=== PATIENT | male | born 1970 | race Caucasian/White ===

== ENCOUNTER 2016-06-12 10:22 | Day surgery (SDC) | payer OTHER ==
[2016-06-06 09:19] LABS: HEMATOCRIT 47.7 % (37.9-51.0); HEMOGLOBIN 16.1 g/dL (13.5-17.0); HGB HCT DIFFERENCE 0.6; MEAN CORPUSCULAR HEMOGLOBIN 30.3 pg (27.0-33.4); MEAN CORPUSCULAR HGB CONC 33.7 g/dL (32.0-36.0); MEAN CORPUSCULAR VOLUME 90 fl (80-97); RED BLOOD COUNT 5.31 10^6/uL (4.35-5.55); RED CELL DISTRIBUTION WIDTH 13.1 % (11.5-14.0); WHITE BLOOD COUNT 6.8 10^3/uL (4.0-10.5)
[2016-06-06 09:23] LABS: APPEARANCE,URINE CLEAR; BILIRUBIN,URINE NEGATIVE (NEGATIVE); GLUCOSE, URINE NEGATIVE (NEGATIVE); KETONES,URINE TRACE mg/dL (NEGATIVE); LEUKOCYTE ESTERASE,URINE NEGATIVE (NEGATIVE); NITRITE,URINE NEGATIVE (NEGATIVE); PROTEIN,URINE NEGATIVE (NEGATIVE); URINE SPECIFIC GRAVITY 1.021; UROBILINOGEN,URINE NEGATIVE mg/dL (<2.0)
[2016-06-06 10:04] LABS: ANION GAP 12 (5-19); BLOOD UREA NITROGEN 18 mg/dL (7-20); CALCIUM 10.1 mg/dL (8.4-10.2); CARBON DIOXIDE 24 mmol/L (22-30); CHLORIDE 109 mmol/L (98-107); CREATININE RESULT 1.24 mg/dL (0.52-1.25); GLUCOSE 84 mg/dL (75-110); POTASSIUM 4.7 mmol/L (3.6-5.0); SODIUM 144.8 mmol/L (137-145)
[~2016-06-12 10:22] MED LIST: CEFAZOLIN 2 GM/D5W RTU 2 GM/50 ML RTUPB IV PRN; DEXAMETHASONE SOD PHOSPHATE INJ 4 MG/1 ML VIAL ONE; LACTATED RINGERS 1000 ML IV PRN; LIDOCAINE 2% INJ-PF (20 MG/ML) 10 ML AMPUL ONE; METOCLOPRAMIDE HCL INJ/PF 10 MG/2 ML SDV ONE; ONDANSETRON HCL INJ/PF 4 MG/2 ML SDV ONE; SUCCINYLCHOLINE CHLORIDE INJ 200 MG/10 ML VIAL ONE
[2016-06-12] MEDS ORDERED: MIDAZOLAM 2 MG/2 ML INJ ONE (12:50)
[2016-06-12] MEDS ORDERED: FENTANYL CITRATE INJ/PF 250 MCG/5 ML AMPULE ONE (12:50)
[2016-06-12] MEDS ORDERED: EPHEDRINE SULFATE INJ 50 MG/1 ML AMPULE ONE (12:50)
[2016-06-12] MEDS ORDERED: DEXMEDETOMIDINE INJ 80 MCG/20 ML VIAL IV ONE (12:51)
[2016-06-12] MEDS ORDERED: PROPOFOL INJ 200 MG/20 ML VIAL IV ONE (12:51)
[2016-06-12] MEDS ORDERED: EPINEPHRINE INJ 30 MG/30 ML VIAL ONE (12:52)
[2016-06-12] MEDS ORDERED: BUPIVACAINE HCL 0.25 % INJ/PF (2.5 MG/1 ML) 30 ML VIAL ONE (12:53)
[2016-06-12] MEDS ORDERED: MEPERIDINE HCL/PF INJ 25 MG/1 ML DISP.SYRIN IV PRN (13:35)
[2016-06-12] MEDS ORDERED: FENTANYL CITRATE INJ/PF 100 MCG/2 ML AMPUL IV PRN ×3 (13:35)
[2016-06-12] MEDS ORDERED: OXYCODONE-ACETAMINOPHEN 5-325 MG TABLET PO PRN ×4 (13:35→14:54)
[2016-06-12] MEDS ORDERED: PROMETHAZINE HCL INJ 25 MG/1 ML VIAL IV PRN ×2 (13:35)
[2016-06-12] MEDS ORDERED: MORPHINE SULFATE 10 MG/ML INJ IV PRN (13:35)
[2016-06-12] MEDS ORDERED: DIPHENHYDRAMINE HCL 50 MG/ML VIAL IV PRN (13:35)
[2016-06-12] MEDS ORDERED: ONDANSETRON HCL INJ/PF 4 MG/2 ML SDV IV PRN (13:35)
[2016-06-12] MEDS ORDERED: MEPERIDINE HCL/PF INJ 25 MG/1 ML DISP.SYRIN ONE (14:48)
--- NOTE | 2016-06-12 14:51 | Operative Report ---
Operative Report DATE OF SURGERY: 06/12/16 PREOPERATIVE DIAGNOSIS: 1.Type II SLAP tear. 2. Degenerative anterior labral tear. 3. Synovitis POSTOPERATIVE DIAGNOSIS: Same OPERATION: Right shoulder arthroscopy with labral debridement. Labral repair 1 anchor. Subpectoralis biceps tenodesis SURGEON: LENCHO ROBERTS ANESTHESIA: GA COMPLICATIONS: None ESTIMATED BLOOD LOSS: 15 mL INTRAOPERATIVE FINDINGS: As above PROCEDURE: Patient received 1 g of IV Ancef. Patient then was taken to the operating room where she was induced and intubated in supine position. Patient then was secured in the beachchair position where the right shoulder was prepped and draped in a normal surgical fashion. Timeout done identifying the right shoulder as the correct site. Spinal needle was used to insert into the glenohumeral joint and I proceeded to distend the capsule with sterile saline solution. 11 blade was used to establish my posterior portal and I introduced the cannula into the glenohumeral joint. Once I got return of fluid I confirm proper placement so I inserted the camera. Under direct visualization I placed a spinal needle marked my anterior portal and used an 11 blade to establish a. I placed a purple cannula and then through the cannula was able to probe and proceed with my diagnostic scope which show pristine glenohumeral joint cartilage but had degenerative tear and anterior labral tear that extended to the type II SLAP tear. Turned my attention to the footprint of the rotator cuff which showed to be intact with no partial tearing. At this point through the anterior portal I use arthroscopic scissors to do a tenotomy of the long head of the biceps at the attachment of the glenoid superiorly. I noticed that the tear was unstable so I made the decision to do a labral repair to secure the labrum. I used a 90 lasso to shuttle a FiberWire underneath the torn labrum. I proceeded then to predrill on the glenoid face with my 2.9 drill bit. I loaded a push lock and secured the FiberWire onto the glenoid face. Probe showed good fixation and less motion of the labral tear. I did use the shaver to debride some of the synovitis and degenerative tear of the labrum anteriorly and superiorly. I proceeded then to remove fluid from the shoulder joint and removed the instruments. A 1 inch incision was done just medial to the axillary fold dissection was done with Metzenbaum scissors and hemostasis was obtained with the Bovie. Able to then cut the fascia overlying the biceps and then hooked the long head of biceps with a 90 clamp. Was able then to use a fiber loop and suture 2 cm from the muscular tendinous junction and cut the remaining tendon. I used 2 Homans to reflect tissue on the side of the humerus. I used a 4 mm spade tip guidepin then to do my proximal cortex drilling into the intramedullary canal of the humerus. I fed the 2 ends of the fiber wire into the biceps tenodesis button as recommended by the manufacturing company. Pulled out the guidepin and then proceeded to insert the button into the intramedullary canal. I was able to successfully flipped the button and after releasing securing the biceps. I used a free needle the comes in the care and pass one of the FiberWire ends through the biceps one more time to further secure it. Once I since the biceps onto the humeral cortex I then proceeded to go several half hitch knots for added fixation. Instruments were removed and used bulb irrigation to wash the tissue. I proceeded to approximate the tissue with 2-0 Vicryl and close the skin with 3-0 nylon. The 2 of the portal sites were closed with 3-0 nylon as well. I placed Xeroform over the incisions and covered it with 4 x 4 dressing and ABD pads. Secured the dressing with Medipore tape. Patient's arm was placed in the sling and the patient then was placed in supine position extubated and sent to PACU in stable condition.
--- NOTE | 2016-06-12 14:54 | PDOC DISCHARGE SUMMARY ---
Discharge Summary (SDC) - Discharge Final Diagnosis: Status post right shoulder arthroscopy with labral repair and biceps tenodesis Date of Surgery: 06/12/16 Condition: Good Treatment or Instructions: Patient is instructed to follow up in 10-14 days. Patient instructed to remove dressing in 4 days then can shower and apply Band- Aids as needed. Patient to wear sling for comfort but okay to remove for shower and pendulum exercises. Pendulum exercises are instructed to be done 3 times a day ideally with breakfast, lunch, dinners and showers. Patient instructed to call if there is any signs of redness or drainage fevers or chills. Prescriptions: Cyclobenzaprine HCl [Flexeril 10 mg Tablet] 10 mg PO TIDP PRN #30 tab PRN Reason: Oxycodone HCl/Acetaminophen [Percocet 5-325 mg Tablet] 1 - 2 tab PO ASDIR PRN # 40 tablet PRN Reason: Respiratory Treatments at Home: Deep Breathing/Coughing Discharge Activity: No Lifting/Push/Pulling Home Care Assistance: None Needed Report the Following to Your Physician Immediately: Shortness of Breath, Vomiting, Fever over 101 Degrees, Unusual Bleeding, Redness, Swelling, Warmth, Drainage-Yellow, Drainage-Green, Drainage-Foul Smelling
[2016-06-12] MEDS: FENTANYL CITRATE INJ/PF 100 MCG/2 ML AMPUL ONE ×3 (14:56→15:06)
[2016-06-12 17:05] VITALS: BP 133/98
== END 2016-06-12 16:50 | disposition home or self-care (01) ==
LOC: OROUT 10:22
PROVIDERS: ATTEND Orthopaedic Surgery
PROC: 0MM14ZZ Reattachment of Right Shoulder Bursa and Ligament, Percutaneous Endoscopic Approach (ICD-10-PCS; 2016-06-12)
PROC: 0LM30ZZ Reattachment of Right Upper Arm Tendon, Open Approach (ICD-10-PCS; principal; 2016-06-12 12:30)
DX: S43.431S Superior glenoid labrum lesion of right shoulder, sequela (principal); M75.81 Other shoulder lesions, right shoulder; X58.XXXS Exposure to other specified factors, sequela; M65.9 Synovitis and tenosynovitis, unspecified; K21.9 Gastro-esophageal reflux disease without esophagitis; G43.909 Migraine, unspecified, not intractable, without status migrainosus; F17.210 Nicotine dependence, cigarettes, uncomplicated; Z79.899 Other long term (current) drug therapy; Z79.1 Long term (current) use of non-steroidal anti-inflammatories (NSAID)
CPT/HCPCS: 36415; 85027; 80048; 81001; 24340; 29807; C1713; J2250; J1100; J0171; J3010 ×2; J2175; J2765; J0330; J2405; J2704; J3490 ×2; J0690; 1630